=== PATIENT | female | born 1975 | race Caucasian/White ===

== ENCOUNTER 2016-08-20 12:45 | Outpatient (CLI) | payer BC | END 2016-08-20 12:46 | disposition home or self-care (01) | DX: N63 Unspecified lump in breast (principal); N64.4 Mastodynia ==

== ENCOUNTER 2018-04-25 00:11 | Emergency (ER) | payer BC ==
[2018-04-25] MEDS ORDERED: IOPAMIDOL-300 100 ML VIAL IVP ONE ×2 (00:12→02:18)
[2018-04-25 00:48] LABS: BASOPHILS # (AUTO) 0.1 10^3/uL (0.0-0.1); BASOPHILS % (AUTO) 0.7 %; EOSINOPHILS # (AUTO) 0.2 10^3/uL (0.0-0.7); EOSINOPHILS % (AUTO) 2.5 %; HGB - HEMOGLOBIN 16.1 g/dL (12.0-16.0); LYMPHOCYTES # (AUTO) 3.2 10^3/uL (1.5-3.5); LYMPHOCYTES % (AUTO) 34.9 %; MEAN CORPUSCULAR HEMOGLOBIN 34.8 pg (27.0-31.0); MEAN CORPUSCULAR HGB CONC 35.1 g/dL (32.0-36.0); MEAN CORPUSCULAR VOLUME 99.1 fL (81.0-99.0); MONOCYTES # (AUTO) 0.6 10^3/uL (0.0-1.0); MONOCYTES % (AUTO) 6.4 %; NEUTROPHILS # (AUTO) 5.2 10^3/uL (1.5-6.6); NEUTROPHILS % (AUTO) 55.5 %; PLT - PLATELET COUNT 258 10^3/uL (130-450); RED BLOOD COUNT 4.62 10^6/uL (4.20-5.40); RED CELL DISTRIBUTION WIDTH 13.4 % (12.0-15.0); WHITE BLOOD COUNT 9.3 x10^3/uL (4.8-10.8)
[2018-04-25 00:53] LABS: ALBUMIN 4.4 g/dL (3.2-5.5); ALBUMIN/GLOBULIN RATIO 1.3 (1.0-2.2); BILIRUBIN,TOTAL 0.5 mg/dL (0.2-1.0); CREATININE 0.6 mg/dL (0.4-1.0); TOTAL PROTEIN 7.9 g/dL (6.7-8.2)
--- NOTE | 2018-04-25 00:53 | XRAY Report ---
Reason: CP Procedure Date: 04/25/2018 Accession Number: [id number] / [id number] Procedure: XR - Chest 2 View X-Ray CPT Code: 96105 FULL RESULT: EXAM: CHEST RADIOGRAPHY EXAM DATE: 04/25/2018 12:45 AM. CLINICAL HISTORY: Chest pain COMPARISON: None. TECHNIQUE: 2 views. FINDINGS: Lungs/Pleura: No focal opacities evident. No pleural effusion. No pneumothorax. Normal volumes. Mediastinum: Heart and mediastinal contours are unremarkable. Other: None. IMPRESSION: Normal 2-view chest radiography. RADIA
[2018-04-25] MEDS ORDERED: IOPAMIDOL-300 100 ML VIAL ONE (02:28)
--- NOTE | 2018-04-25 02:47 | CT Report ---
Reason: cp, soa with elevated d-dimer Procedure Date: 04/25/2018 Accession Number: [id number] / [id number] Procedure: CT - Chest Angio (PE) CPT Code: FULL RESULT: EXAM: CT ANGIOGRAM CHEST EXAM DATE: 04/25/2018 02:30 AM. CLINICAL HISTORY: Chest pain, shortness of air with elevated D-dimer. COMPARISON: CHEST 2 VIEW 04/25/2018 12:31 AM. TECHNIQUE: Routine helical imaging was performed through the chest in the pulmonary arterial phase. IV Contrast: Yes. Reconstructions: Coronal 3-D MIP reconstructions.Sagittal and coronal. In accordance with CT protocol optimization, one or more of the following dose reduction techniques were utilized for this exam: automated exposure control, adjustment of mA and/or KV based on patient size, or use of iterative reconstructive technique. FINDINGS: Pulmonary Arteries: Technically adequate for evaluation through the segmental arteries. No evidence for acute or chronic pulmonary emboli. Lungs/Pleura: Scattered bilateral upper lobe and right middle lobe peripheral nodular opacities. No large consolidative pneumonia or effusion. Mediastinum: No acute aortic syndrome. No cardiac enlargement. No adenopathy. Upper Abdomen: Unremarkable. Other: None. IMPRESSION: 1. No pulmonary emboli. 2. Scattered small peripheral nodular opacities in the bilateral upper lobes and right middle lobe. Appearance favors mild inflammatory process such as bronchopneumonia. RADIA
[2018-04-25] MEDS ORDERED: DOXYCYCLINE 100 MG TABLET PO STA (03:21)
--- NOTE | 2018-04-25 03:35 | ED Physician Documentation ---
PD HPI CHEST PAIN - Stated complaint Stated Complaint: CP - Chief complaint Chief Complaint: Cardiac - History obtained from History obtained from: Patient - History of Present Illness Timing - onset: Today Timing - onset during: Light activity Timing - duration: Other (14:00) Timing - details: Gradual onset Severity Comments: moderate Quality: Sharp, Stabbing. No: Pressure, Tightness, Aching, Tearing, Dull, Throbbing Location: Substernal Radiation: No: Jaw, Neck, Back, Abdominal, Left upper extremity, Right upper extremity Improved by: Nothing Worsened by: Inspiration Associated symptoms: Shortness of air. No: Diaphoresis, Nausea, Vomiting, Feeling faint / dizzy, General Weakness Similar symptoms before: No diagnosis Recently seen: Not recently seen Review of Systems Constitutional: denies: Fever, Fatigue Eyes: denies: Discharge Ears: denies: Ear pain Nose: denies: Congestion Throat: denies: Sore throat Cardiac: reports: Chest pain / pressure Respiratory: reports: Dyspnea, Cough GI: denies: Abdominal Pain : denies: Dysuria Skin: denies: Rash Musculoskeletal: denies: Neck pain Neurologic: denies: Generalized weakness Psychiatric: denies: Hallucinations Immunocompromised: denies: Chemotherapy PD PAST MEDICAL HISTORY - Past Medical History Past Medical History: No - Past Surgical History 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 HEENT: Tonsil/Adenoidectomy - Present Medications Home Medications: Ambulatory Orders Medication Instructions Recorded Confirmed Doxycycline Hyclate 100 mg PO BID #20 capsule 04/25/18 - Allergies Allergies/Adverse Reactions: Allergies Allergy/AdvReac Type Severity Reaction Status Date / Time narcotics AdvReac Emesis Uncoded 04/25/18 00:30 - Social History Does the pt smoke?: Yes Smoking Status: Current every day smoker Does the pt drink ETOH?: Yes ETOH Use: Liquor Does the pt have substance abuse?: No - Immunizations Immunizations are current?: Yes - POLST Patient has POLST: No PD ED PE NORMAL - General General: Alert and oriented X 3, No acute distress - HEENT HEENT: Atraumatic, PERRL, EOMI, Ears normal - Neck Neck: Supple, no meningeal sign - Cardiac Cardiac: RRR, Strong equal pulses - Respiratory Respiratory: No respiratory distress - Derm Derm: Normal color - Extremities Extremities: No deformity, No calf tenderness / cord - Neuro Neuro: Alert and oriented X 3, Normal speech - Psych Psych: Normal mood Results - Vitals Vitals: Vital Signs - 24 hr 04/25/18 04/25/18 04/25/18 00:15 01:05 01:24 Temperature 36.0 C L Heart Rate 96 82 79 Respiratory 18 20 18 Rate Blood Pressure 143/98 H 115/82 H 115/82 H O2 Saturation 98 96 98 04/25/18 04/25/18 02:05 02:40 Temperature Heart Rate 79 83 Respiratory 17 18 Rate Blood Pressure 120/77 141/98 H O2 Saturation 100 99 Oxygen O2 Source Room air - EKG (time done) No standard instances Rate: Rate (enter#) (90) Rhythm: NSR Elizabeth: Normal Intervals: Normal [place] QRS: Normal Ischemia: Normal ST segments - Labs Labs: Laboratory Tests 04/25/18 04/25/18 04/25/18 00:30 00:30 00:30 WBC 9.3 RBC 4.62 Hgb 16.1 H Hct 45.8 MCV 99.1 H MCH 34.8 H MCHC 35.1 RDW 13.4 Plt Count 258 MPV 9.0 Neut # (Auto) 5.2 Lymph # (Auto) 3.2 [place] # (Auto) 0.6 Eos # (Auto) 0.2 Baso # (Auto) 0.1 Absolute Nucleated RBC 0.00 Nucleated RBC % 0.0 D-Dimer Sodium 141 Potassium 3.7 Chloride 108 Carbon Dioxide 22 Anion Gap 11.0 BUN 8 Creatinine 0.6 Estimated GFR (MDRD) 109 Glucose 99 Calcium 9.0 Total Bilirubin 0.5 AST 28 ALT 37 Alkaline Phosphatase 71 Troponin I < 0.04 Total Protein 7.9 Albumin 4.4 Globulin 3.5 Albumin/Globulin Ratio 1.3 Lipase 39 04/25/18 04/25/18 00:30 02:40 WBC RBC Hgb Hct MCV MCH MCHC RDW Plt Count MPV Neut # (Auto) Lymph # (Auto) [place]wood # (Auto) Eos # (Auto) Baso # (Auto) Absolute Nucleated RBC Nucleated RBC % D-Dimer 323.7 H Sodium Potassium Chloride Carbon Dioxide Anion Gap BUN Creatinine Estimated GFR (MDRD) Glucose Calcium Total Bilirubin AST ALT Alkaline Phosphatase Troponin I < 0.04 Total Protein Albumin Globulin Albumin/Globulin Ratio Lipase - Rads (name of study) CTA Chest Radiology: Final report received (1. No pulmonary emboli. 2. Scattered small peripheral nodular opacities in the bilateral upper lobes and right middle lobe. Appearance favors mild inflammatory process ) CXR Radiology: Final report received (IMPRESSION: Normal 2-view chest radiography. ) PD MEDICAL DECISION MAKING - ED course ED course: On reevaluation the patient is resting comfortably and appears to be in no significant distress. The etiology of the patient's symptoms most likely are secondary to the pneumonia seen on CT scan. The patient's workup shows no evidence of DVT, acute coronary syndrome, pneumothorax or dissection. The patient is also in the low risk category per the heart score and appears appropriate for discharge and ongoing outpatient management. The patient will be treated with an antibiotic for the pneumonia. I recommended close follow-up with primary care, the patient may also still require an outpatient stress test to rule out any cardiac etiology. The patient understands and agrees to the plan. I discussed warning signs and recommended returning to the emergency department immediately for any worsening or any concerns. Departure - Departure Disposition: 01 Home, Self Care Clinical Impression: Chest pain Qualifiers: Chest pain type: unspecified Qualified Code(s): R07.9 - Chest pain, unspecified Pneumonia Qualifiers: Pneumonia type: due to unspecified organism Laterality: unspecified laterality Lung location: unspecified part of lung Qualified Code(s): J18.9 - Pneumonia, unspecified organism Condition: Good Instructions: ED Pneumonia Adult, ED Chest Pain [facility] Prescriptions: Doxycycline Hyclate 100 mg PO BID #20 capsule Comments: Please follow-up with primary care for ongoing workup and management. Please ask your primary care about arranging an outpatient stress test. Please return to the emergency department immediately for worsening symptoms or any concerns
[2018-04-25 03:55] VITALS: BP 120/77
== END 2018-04-25 03:44 | disposition home or self-care (01) ==
LOC: ED 00:11
DX: R07.9 Chest pain, unspecified (principal); J18.9 Pneumonia, unspecified organism; F17.200 Nicotine dependence, unspecified, uncomplicated
CPT/HCPCS: 36415; 71046; 71275; 80053; 83690; 84484; 85025; 85379; 93005; 99284; A9270; Q9967

== ENCOUNTER 2019-08-04 23:33 | Outpatient (CLI) | payer BC | END 2019-08-04 23:34 | disposition critical access hospital (66) | LOC: EMS 23:33 | PROVIDERS: ATTEND Surgery | DX: R46.4 Slowness and poor responsiveness (principal) | CPT/HCPCS: A0425; A0427 ==

== ENCOUNTER 2019-08-04 23:55 | Emergency (ER) | payer BC ==
[2019-08-05] MEDS ORDERED: FOLIC ACID INJ 1 MG, THIAMINE INJ 100 MG, MAGNESIUM SULFATE 2 GM, MULTIVITAMIN 10 ML in... IV STA ×5 (00:04)
--- NOTE | 2019-08-05 00:08 | ED Physician Documentation ---
History of Present Illness - Stated complaint Stated Complaint: ETOH/ SI - History obtained from History obtained from: EMS (History is extremely limited. Patient arrived intoxicated. EMS took the history from patient's boyfriend. According to the boyfriend, patient took unknown quantity of Ativan. On the empty bottle, Ativan was prescribing in April 2019 #24. Patient is a known alcoholic and has been drinking Heavily today. She has history of depression and questionable previous suicidal intent 8+ years ago. According to the chef de froid her boyfriend indicated that for the last 8 years they have been together, she has not attempted suicide. Patient in the emergency room has spontaneous respiration, snore quite loudly, and has no distress. in route, chef de froid has given her 2 mg of Narcan without any changes.) - History of Present Illness Timing: Unknown Review of Systems Unable to obtain: Unresponsive Ten Systems: 10 systems reviewed and negative Constitutional: reports: Reviewed and negative Eyes: reports: Reviewed and negative Ears: reports: Reviewed and negative Nose: reports: Reviewed and negative Throat: reports: Reviewed and negative Cardiac: reports: Reviewed and negative Respiratory: reports: Reviewed and negative GI: reports: Reviewed and negative : reports: Reviewed and negative Skin: reports: Reviewed and negative Musculoskeletal: reports: Reviewed and negative Neurologic: reports: Generalized weakness Psychiatric: reports: Depressed, Suicidal Endocrine: reports: Reviewed and negative Immunocompromised: reports: Reviewed and negative PD PAST MEDICAL HISTORY - Past Medical History Past Medical History: Yes Psych: Depression, Other (Alcohol abuse) - Past Surgical History 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 HEENT: Tonsil/Adenoidectomy - Present Medications Home Medications: Ambulatory Orders Medication Instructions Recorded Confirmed Atorvastatin [Lipitor] 1 tab DAILY 08/05/19 08/05/19 Lorazepam [Ativan] 1 tab Q8HR PRN 08/05/19 08/05/19 Naltrexone HCl 50 mg PO 08/05/19 - Allergies Allergies/Adverse Reactions: Allergies Allergy/AdvReac Type Severity Reaction Status Date / Time narcotics AdvReac Emesis Uncoded 04/25/18 00:30 - Social History Does the pt smoke?: Yes Smoking Status: Current every day smoker Does the pt drink ETOH?: Yes Does the pt have substance abuse?: No - Immunizations Immunizations are current?: Yes - POLST Patient has POLST: No PD ED PE NORMAL - Vitals Vital signs reviewed: Yes - General General: No acute distress, Other (Nonresponsive, spontaneous respiration, obtunded,) - HEENT HEENT: PERRL, Other. No: Moist mucous membranes (dry oral mucosa) - Neck Neck: Supple, no meningeal sign - Cardiac Cardiac: RRR, No murmur - Respiratory Respiratory: Clear bilaterally - Abdomen Abdomen: Normal bowel sounds, Soft, Non tender, Non distended - Derm Derm: Warm and dry - Extremities Extremities: No deformity - Neuro Neuro: Alert and oriented X 3 - Psych Psych: Normal mood, Normal affect Results - Vitals Vitals: Vital Signs - 24 hr 08/05/19 08/05/19 08/05/19 01:30 02:00 02:30 Heart Rate 85 79 77 Respiratory 18 17 19 Rate Blood Pressure 98/61 126/75 95/75 O2 Saturation 99 100 100 08/05/19 08/05/19 08/05/19 03:00 03:30 04:00 Heart Rate 53 L 81 83 Respiratory 20 18 16 Rate Blood Pressure 134/55 H 103/62 114/74 O2 Saturation 94 99 100 08/05/19 08/05/19 08/05/19 04:30 05:00 05:30 Heart Rate 83 86 100 Respiratory 14 16 12 Rate Blood Pressure 103/74 94/52 L 108/71 O2 Saturation 100 95 97 08/05/19 08/05/19 08/05/19 06:46 07:33 12:50 Heart Rate 104 H 81 88 Respiratory 21 24 18 Rate Blood Pressure 101/53 L 110/77 148/94 H O2 Saturation 96 96 Oxygen O2 Source Room air Oxygen Flow Rate 2 - Labs Labs: Laboratory Tests 08/05/19 08/05/19 08/05/19 00:10 00:10 00:10 WBC 7.3 RBC 4.38 Hgb 14.6 Hct 46.5 MCV 106.2 H MCH 33.3 H MCHC 31.4 L RDW 12.6 Plt Count 257 MPV 10.3 Neut # (Auto) 3.5 Lymph # (Auto) 3.0 [place] # (Auto) 0.6 Eos # (Auto) 0.2 Baso # (Auto) 0.0 Absolute Nucleated RBC 0.00 Nucleated RBC % 0.0 Sodium 143 Potassium 3.7 Chloride 106 Carbon Dioxide 25 Anion Gap 12.0 BUN 9 Creatinine 0.6 Estimated GFR (MDRD) 108 Glucose 111 H Calcium 8.5 Total Bilirubin < 0.2 L AST 21 ALT 26 Alkaline Phosphatase 60 Total Protein 6.7 Albumin 3.6 Globulin 3.1 Albumin/Globulin Ratio 1.2 Lipase 51 TSH 2.04 Urine Color Urine Clarity Urine pH Ur Specific Equality Urine Protein Urine Glucose (UA) Urine Ketones Urine Occult Blood Urine Nitrite Urine Bilirubin Urine Urobilinogen Ur Leukocyte Esterase Ur Microscopic Review Urine Culture Comments Urine HCG, Qual Salicylates < 6.0 Urine Opiates Screen Ur Oxycodone Screen Urine Methadone Screen Ur Propoxyphene Screen Acetaminophen < 10 L Ur Barbiturates Screen Ur Tricyclics Screen Ur Phencyclidine Scrn Ur Amphetamine Screen U Methamphetamines Scrn U Benzodiazepines Scrn Urine Cocaine Screen U Cannabinoids Screen Ethyl Alcohol 215.7 08/05/19 08/05/19 08/05/19 00:15 00:15 07:20 WBC RBC Hgb Hct MCV MCH MCHC RDW Plt Count MPV Neut # (Auto) Lymph # (Auto) [place] # (Auto) Eos # (Auto) Baso # (Auto) Absolute Nucleated RBC Nucleated RBC % Sodium Potassium Chloride Carbon Dioxide Anion Gap BUN Creatinine Estimated GFR (MDRD) Glucose Calcium Total Bilirubin AST ALT Alkaline Phosphatase Total Protein Albumin Globulin Albumin/Globulin Ratio Lipase TSH Urine Color YELLOW Urine Clarity CLEAR Urine pH 5.5 Ur Specific Equality <=1.005 Urine Protein NEGATIVE Urine Glucose (UA) NEGATIVE Urine Ketones NEGATIVE Urine Occult Blood TRACE-INTA Urine Nitrite NEGATIVE Urine Bilirubin NEGATIVE Urine Urobilinogen 0.2 (NORMAL) Ur Leukocyte Esterase NEGATIVE Ur Microscopic Review NOT INDICATED Urine Culture Comments NOT INDICATED Urine HCG, Qual NEGATIVE Salicylates Urine Opiates Screen POSITIVE H Ur Oxycodone Screen NEGATIVE Urine Methadone Screen NEGATIVE Ur Propoxyphene Screen NEGATIVE Acetaminophen Ur Barbiturates Screen NEGATIVE Ur Tricyclics Screen NEGATIVE Ur Phencyclidine Scrn NEGATIVE Ur Amphetamine Screen NEGATIVE U Methamphetamines Scrn NEGATIVE U Benzodiazepines Scrn POSITIVE H Urine Cocaine Screen NEGATIVE U Cannabinoids Screen NEGATIVE Ethyl Alcohol 22.9 PD MEDICAL DECISION MAKING - ED course ED course: This lady presented to the emergency room by chef de froid with alcohol intoxication and possible suicidal intent. Her alcohol level is elevated. CBC and chemistry are essentially negative. UDS demonstrated positive benzodiazepine and opiate. Throughout the evening, patient has been sleeping. Patient needs to be reassessed when she is more alert. She will also benefit from a social service consultation in the morning. Care is transferred at 7:00 in the morning. Departure - Departure Disposition: 01 Home, Self Care Clinical Impression: Suicidal intent Alcohol intoxication Qualifiers: Complication of substance-induced condition: uncomplicated Qualified Code(s): F10.920 - Alcohol use, unspecified with intoxication, uncomplicated Condition: Stable Instructions: ED Alcohol Intoxication Comments: Follow-up with the detox and counseling program as planned. Avoid alcohol. Stay well-hydrated. Discharge Date/Time: 08/05/19 13:12
[2019-08-05] MEDS ORDERED: THIAMINE 100 MG/1 ML 2 ML MDV ONE (00:23)
[2019-08-05 00:24] LABS: BILIRUBIN,URINE NEGATIVE (NEGATIVE); GLUCOSE, URINE (UA) NEGATIVE (NEGATIVE); KETONES,URINE (UA) NEGATIVE (NEGATIVE); LEUKOCYTE ESTERASE, URINE NEGATIVE (NEGATIVE); NITRITE,URINE NEGATIVE (NEGATIVE); OCCULT BLOOD,URINE TRACE-INTA (NEGATIVE); PH,URINE 5.5 PH (5.0-7.5); PROTEIN,URINE NEGATIVE (NEGATIVE); UROBILINOGEN,URINE 0.2 (NORMAL) E.U./dL (NORMAL)
[2019-08-05 00:25] LABS: CLARITY,URINE CLEAR (CLEAR); HCG UR QUAL NEGATIVE; MUDS CUTOFF CONCENTRATIONS CUTOFF CONC BELOW:
[2019-08-05 00:26] LABS: BASOPHILS % (AUTO) 0.4 %; EOSINOPHILS # (AUTO) 0.2 10^3/uL (0.0-0.7); EOSINOPHILS % (AUTO) 2.5 %; HGB - HEMOGLOBIN 14.6 g/dL (12.0-16.0); LYMPHOCYTES % (AUTO) 40.6 %; MEAN CORPUSCULAR HEMOGLOBIN 33.3 pg (27.0-31.0); MEAN CORPUSCULAR HGB CONC 31.4 g/dL (32.0-36.0); MEAN CORPUSCULAR VOLUME 106.2 fL (81.0-99.0); MEAN PLATELET VOLUME 10.3 fL (7.9-10.8); MONOCYTES # (AUTO) 0.6 10^3/uL (0.0-1.0); MONOCYTES % (AUTO) 8.5 %; NEUTROPHILS # (AUTO) 3.5 10^3/uL (1.5-6.6); NEUTROPHILS % (AUTO) 47.7 %; PLT - PLATELET COUNT 257 10^3/uL (130-450); RED BLOOD COUNT 4.38 10^6/uL (4.20-5.40); RED CELL DISTRIBUTION WIDTH 12.6 % (12.0-15.0); WHITE BLOOD COUNT 7.3 x10^3/uL (4.8-10.8)
[2019-08-05 00:35] LABS: AMPHETAMINE SCREEN,URINE NEGATIVE (NEGATIVE); BENZODIAZEPINES SCREEN, URINE POSITIVE (NEGATIVE); COCAINE SCREEN URINE NEGATIVE (NEGATIVE); METHADONE SCREEN, URINE NEGATIVE (NEGATIVE); METHAMPHETAMINES SCREEN, URINE NEGATIVE (NEGATIVE); OPIATE SCREEN, URINE POSITIVE (NEGATIVE); OXYCODONE SCREEN, URINE NEGATIVE (NEGATIVE); PROPOXYPHENE SCREEN, URINE NEGATIVE (NEGATIVE); TRICYCLIC ANTIDEPRESSANT,URINE NEGATIVE (NEGATIVE)
[2019-08-05 00:46] LABS: ACETAMINOPHEN < 10 ug/mL (10-30); ALBUMIN 3.6 g/dL (3.2-5.5); ALBUMIN/GLOBULIN RATIO 1.2 (1.0-2.2); ALKALINE PHOSPHATASE 60 IU/L (42-121); ALT ALANINE AMINOTRANSFERASE 26 IU/L (10-60); AST ASPARTATE AMINOTRANSFERASE 21 IU/L (10-42); BILIRUBIN,TOTAL < 0.2 mg/dL (0.2-1.0); BUN - BLOOD UREA NITROGEN 9 mg/dL (6-20); CALCIUM 8.5 mg/dL (8.5-10.3); CARBON DIOXIDE - CO2 25 mmol/L (21-32); CHLORIDE 106 mmol/L (101-111); CREATININE 0.6 mg/dL (0.4-1.0); GFR - MDRD 108 (>89); GLUCOSE 111 mg/dL (70-100); LIPASE 51 U/L (22-51); SALICYLATE < 6.0 mg/dL; SODIUM 143 mmol/L (135-145); TOTAL PROTEIN 6.7 g/dL (6.7-8.2)
[2019-08-05] MEDS ORDERED: SODIUM CHLORIDE 0.9% 1,000 ML IV ONE (02:05)
[2019-08-05] MEDS ORDERED: NICOTINE 14 MG PATCH TOP STA (09:36)
--- NOTE | 2019-08-05 12:55 | ED Physician Documentation ---
ED Addendum - Addendum Addendum: 08/05/19 12:53 The patient was seen by social work and who felt an assessment by [facility] was warranted. Eulalia from the [facility] came and talked with the patient felt that she was not in need of detainment. She did not seem suicidal at this time but was more influenced by the alcohol at the time overnight. She denies any suicidality to me as well. She was made an appointment with a [facility] for Saturday for a alcohol and drug treatment intake interview. She will avoid alcohol. She will stay well-hydrated. She does have the support of friends and family with her will be watching with her and helping her. Alcohol intoxication #2 suicidal ideation and intent #3 depression and anxiety Disposition the patient discharged home in stable condition.
[2019-08-05 13:10] VITALS: BP 148/94
== END 2019-08-05 13:12 | disposition home or self-care (01) ==
LOC: EDUNIT# → ED 23:55
DX: F10.229 Alcohol dependence with intoxication, unspecified (principal); F32.9 Major depressive disorder, single episode, unspecified; F41.9 Anxiety disorder, unspecified; R45.851 Suicidal ideations; F17.200 Nicotine dependence, unspecified, uncomplicated
CPT/HCPCS: 36415; 80320; 80329; 81003; 81025; 83690; 96365; 96366; 99284; 99285; A9270; J3411; 80053; 80306; 80307; 81001; 84443; 85025; 87086

== ENCOUNTER 2020-02-23 14:53 | Emergency (ER) | payer BC ==
--- NOTE | 2020-02-23 15:00 | ED Physician Documentation ---
PD HPI CHEST PAIN - Stated complaint Stated Complaint: BACK/CHEST PX - History obtained from History obtained from: Patient - History of Present Illness Timing - onset: Today (She was awoken about 4 AM this morning with substernal chest pain rating to her back which has persisted through the whole morning into the afternoon. Worse with breathing. She had some coffee but no food and did not notice any worsening or improvement. She is not coughing. No dizzy or lighthead) Timing - onset during: Sleep Timing - duration: Hours (11) Timing - details: Abrupt onset, Still present Quality: Tightness, Aching, Pain Location: Substernal Radiation: Neck, Back. No: Jaw, Abdominal Associated symptoms: Feeling faint / dizzy, Palpitations. No: Shortness of air, Nausea, General Weakness Similar symptoms before: Has not had sx before Recently seen: Not recently seen (She did stop at the walk-in clinic but was diverted to the ER for further evaluation.) Review of Systems Constitutional: denies: Fever, Chills Nose: denies: Rhinorrhea / runny nose, Congestion Throat: denies: Sore throat Cardiac: reports: Chest pain / pressure (just this morning; no prior similar.), Palpitations. denies: Pedal edema, Calf pain Respiratory: denies: Dyspnea, Cough, Wheezing GI: denies: Abdominal Pain, Nausea, Vomiting, Diarrhea Musculoskeletal: denies: Extremity swelling Neurologic: reports: Generalized weakness. 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 HEENT: Tonsil/Adenoidectomy - Present Medications Home Medications: Ambulatory Orders Medication Instructions Recorded Confirmed Atorvastatin [Lipitor] 1 tab DAILY 08/05/19 08/05/19 Lorazepam [Ativan] 1 tab Q8HR PRN 08/05/19 08/05/19 Naltrexone HCl 50 mg PO 08/05/19 - Allergies Allergies/Adverse Reactions: Allergies Allergy/AdvReac Type Severity Reaction Status Date / Time Opioids - Morphine Analogues AdvReac Intermediate Emesis Verified 02/23/20 16:40 - Social History Does the pt smoke?: Yes Smoking Status: Current every day smoker Does the pt drink ETOH?: Yes Does the pt have substance abuse?: No - Immunizations Immunizations are current?: Yes - POLST Patient has POLST: No PD ED PE NORMAL - Vitals Vital signs reviewed: Yes - General General: Alert and oriented X 3, No acute distress, Well developed/nourished - HEENT HEENT: Pharynx benign - Neck Neck: Supple, no meningeal sign, No adenopathy - Cardiac Cardiac: RRR, No murmur - Respiratory Respiratory: Clear bilaterally, Other (no chestwall tenderness) - Abdomen Abdomen: Soft, Non tender - Derm Derm: Normal color, Warm and dry - Extremities Extremities: No tenderness to palpate, Normal ROM s pain, No edema, No calf tenderness / cord - Neuro Neuro: Alert and oriented X 3, No motor deficit, Normal speech Results - Vitals Vitals: Vital Signs - 24 hr 02/23/20 02/23/20 02/23/20 15:05 16:53 17:12 Temperature 36.8 C Heart Rate 98 85 75 Respiratory 20 17 11 L Rate Blood Pressure 159/97 H 151/101 H 156/105 H O2 Saturation 99 100 99 Oxygen O2 Source Room air - EKG (time done) 14:59 Rate: Rate (enter#) (84) Rhythm: NSR [place]: Normal Intervals: Normal [place] QRS: Normal Ischemia: Normal ST segments. No: ST elevation c/w ischemia, ST depression - Labs Labs: Laboratory Tests 02/23/20 02/23/20 02/23/20 15:28 15:28 15:28 WBC 8.4 RBC 4.90 Hgb 17.1 H Hct 50.0 H MCV 102.0 H MCH 34.9 H MCHC 34.2 RDW 12.9 Plt Count 230 MPV 10.3 Neut # (Auto) 5.3 Lymph # (Auto) 2.1 Barton # (Auto) 0.7 Eos # (Auto) 0.1 Baso # (Auto) 0.0 Absolute Nucleated RBC 0.00 Nucleated RBC % 0.0 Sodium 139 Potassium 3.6 Chloride 104 Carbon Dioxide 25 Anion Gap 10.0 BUN 8 Creatinine 0.6 Estimated GFR (MDRD) 108 Glucose 93 Calcium 9.5 Total Bilirubin 0.7 AST 23 ALT 28 Alkaline Phosphatase 81 Troponin I High Sens 241.5 H* Total Protein 7.6 Albumin 4.4 Globulin 3.2 Albumin/Globulin Ratio 1.4 Lipase 36 - Rads (name of study) chest xray Radiology: Prelim report reviewed, See rad report (no acute process) PD MEDICAL DECISION MAKING - ED course Complexity details: reviewed results (She has a quite elevated troponin of 241 which would be highly suggestive of acute myocardial injury. As such I do not feel that this is a rule out process but needs cardiology evaluation.), considered differential (Awoke with chest pain this morning which has been persistent. EKG is normal. We will get chest x-ray and blood tests. She has a low pretest risk assessment for PE. No recent cough to suggest pneumonia. No exertional symptoms preceding this), d/w patient Departure - Departure Disposition: 02 Transfer Acute Care Hosp Clinical Impression: Elevated troponin, Non-STEMI (non-ST elevated myocardial infarction) Chest pain Qualifiers: Chest pain type: precordial pain Qualified Code(s): R07.2 - Precordial pain Condition: Stable Record reviewed to determine appropriate education?: Yes
[2020-02-23] MEDS: MAG HYDROX/AL HYDROX/SIMETH 30 ML UDC PO STA (15:33)
[2020-02-23] MEDS: LIDOCAINE VISCOUS 2% 15 ML UDC MM STA (15:33)
[2020-02-23 15:36] LABS: BASOPHILS % (AUTO) 0.5 %; EOSINOPHILS # (AUTO) 0.1 10^3/uL (0.0-0.7); EOSINOPHILS % (AUTO) 1.7 %; HGB - HEMOGLOBIN 17.1 g/dL (12.0-16.0); LYMPHOCYTES # (AUTO) 2.1 10^3/uL (1.5-3.5); LYMPHOCYTES % (AUTO) 25.5 %; MEAN CORPUSCULAR HEMOGLOBIN 34.9 pg (27.0-31.0); MEAN CORPUSCULAR HGB CONC 34.2 g/dL (32.0-36.0); MEAN PLATELET VOLUME 10.3 fL (7.9-10.8); MONOCYTES # (AUTO) 0.7 10^3/uL (0.0-1.0); MONOCYTES % (AUTO) 8.9 %; NEUTROPHILS # (AUTO) 5.3 10^3/uL (1.5-6.6); PLT - PLATELET COUNT 230 10^3/uL (130-450); RED CELL DISTRIBUTION WIDTH 12.9 % (12.0-15.0); WHITE BLOOD COUNT 8.4 x10^3/uL (4.8-10.8)
--- NOTE | 2020-02-23 15:36 | XRAY Report ---
PROCEDURE: Chest 1 View X-Ray INDICATIONS: Chest pain TECHNIQUE: One view of the chest was acquired. COMPARISON: 04/25/2018 FINDINGS: Surgical changes and devices: None. Lungs and pleura: No pleural effusions or pneumothorax. Lungs are clear. Mediastinum: Mediastinal contours appear normal. Heart size is normal. Bones and chest wall: No suspicious bony lesions. Overlying soft tissues appear unremarkable. IMPRESSION: No acute cardiac pulmonary process demonstrated radiographically. Reviewed by: Kevin Burciaga MD on 02/23/2020 3:35 PM PDT Approved by: Kevin Burciaga MD on 02/23/2020 3:35 PM PDT Station ID: [id number]
[2020-02-23 15:47] LABS: ALBUMIN 4.4 g/dL (3.2-5.5); ALBUMIN/GLOBULIN RATIO 1.4 (1.0-2.2); BILIRUBIN,TOTAL 0.7 mg/dL (0.2-1.0); CALCIUM 9.5 mg/dL (8.5-10.3); CREATININE 0.6 mg/dL (0.4-1.0); TOTAL PROTEIN 7.6 g/dL (6.7-8.2)
[2020-02-23] MEDS: ASPIRIN CHEW 81 MG TABLET PO STA (16:06)
[2020-02-23] MEDS: METOPROLOL 5 MG/5 ML VIAL IVP STA (16:42)
[2020-02-23] MEDS: ATORVASTATIN 10 MG TABLET PO STA (16:42)
[2020-02-23] MEDS: CLOPIDOGREL 300 MG TABLET PO STA (16:42)
[2020-02-23] MEDS: MORPHINE 2 MG/ML CARPUJECT IVP STA (16:43)
[2020-02-23] MEDS: HEPARIN 25,000 UNITS/500 ML NS 25,000 UNIT/500 ML BAG IV STA (16:50)
[2020-02-23] MEDS ORDERED: HEPARIN 25,000 UNITS/500 ML PREMIX IV SCH (17:00)
[2020-02-23 19:00] VITALS: BP 148/88
== END 2020-02-23 19:35 | disposition short-term general hospital (02) ==
LOC: ED 14:53
DX: I21.4 Non-ST elevation (NSTEMI) myocardial infarction (principal); F17.200 Nicotine dependence, unspecified, uncomplicated
CPT/HCPCS: 36415; 71045; 80053; 83690; 83880; 84484; 85025; 93005; 96374; 96375; 99284; 99285; A9270

== ENCOUNTER 2020-02-23 19:31 | Outpatient (CLI) | payer BC | END 2020-02-23 19:32 | disposition short-term general hospital (02) | LOC: EMS 19:31 | PROVIDERS: ATTEND Surgery | DX: R07.89 Other chest pain (principal); M54.9 Dorsalgia, unspecified | CPT/HCPCS: A0425; A0426 ==

== ENCOUNTER 2020-12-26 12:32 | Outpatient (CLI) | payer BC ==
--- NOTE | 2020-12-26 12:52 | XRAY Report ---
PROCEDURE: Shoulder 3 View RT INDICATIONS: CONTUSION OF RIGHT SHOULDER TECHNIQUE: 3 views of the shoulder were acquired. COMPARISON: None. FINDINGS: Bones: No fractures or dislocations. No suspicious bony lesions. Visualized ribs appear intact. S light high riding appearance of the humeral head. Soft tissues: No suspicious soft tissue calcifications. IMPRESSION: 1. . No visualized acute fracture or dislocation. However, occult injury cannot be excluded. Recomme nd short interval imaging follow-up in 7-10 days as clinically indicated for additional evaluation. 2. High riding humeral head which can be seen with rotator cuff pathology. Reviewed by: Yulia Sahu MD on 12/26/2020 12:50 PM PDT Approved by: Yulia Sahu MD on 12/26/2020 12:50 PM PDT Station ID: [id number]
== END 2020-12-26 23:59 | disposition home or self-care (01) ==
LOC: DI.S 12:32
PROVIDERS: ATTEND Physician Assistant Medical
DX: R93.6 Abnormal findings on diagnostic imaging of limbs (principal)

== ENCOUNTER 2020-12-27 15:37 | Outpatient (CLI) | payer BC ==
[2020-12-27 16:10] LABS: BASOPHILS % (AUTO) 0.2 %; EOSINOPHILS # (AUTO) 0.2 10^3/uL (0.0-0.7); EOSINOPHILS % (AUTO) 1.7 %; HGB - HEMOGLOBIN 13.7 g/dL (12.0-16.0); LYMPHOCYTES # (AUTO) 2.6 10^3/uL (1.5-3.5); LYMPHOCYTES % (AUTO) 26.9 %; MEAN CORPUSCULAR HEMOGLOBIN 33.7 pg (27.0-31.0); MEAN CORPUSCULAR HGB CONC 33.4 g/dL (32.0-36.0); MEAN PLATELET VOLUME 10.2 fL (7.9-10.8); MONOCYTES # (AUTO) 0.8 10^3/uL (0.0-1.0); MONOCYTES % (AUTO) 7.9 %; PLT - PLATELET COUNT 278 10^3/uL (130-450); RED BLOOD COUNT 4.06 10^6/uL (4.20-5.40); RED CELL DISTRIBUTION WIDTH 12.2 % (12.0-15.0); WHITE BLOOD COUNT 9.5 x10^3/uL (4.8-10.8)
[2020-12-27 16:28] LABS: ALBUMIN 4.1 g/dL (3.2-5.5); ALKALINE PHOSPHATASE 160 IU/L (42-121); ALT ALANINE AMINOTRANSFERASE 47 IU/L (10-60); AST ASPARTATE AMINOTRANSFERASE 35 IU/L (10-42); BILIRUBIN,DIRECT 0.1 mg/dL (0.1-0.5); BILIRUBIN,TOTAL 0.6 mg/dL (0.2-1.0); BUN - BLOOD UREA NITROGEN 15 mg/dL (6-20); CALCIUM 9.3 mg/dL (8.5-10.3); CARBON DIOXIDE - CO2 23 mmol/L (21-32); CHLORIDE 104 mmol/L (101-111); CHOL/HDL RATIO 2.5 (<4.4); CHOLESTEROL 144 mg/dL; CREATININE 0.8 mg/dL (0.4-1.0); GFR - MDRD 77 (>89); GLUCOSE 97 mg/dL (70-100); HDL CHOLESTEROL 57 mg/dL; LDL CHOLESTEROL,CALCULATED 56 mg/dL; POTASSIUM 3.6 mmol/L (3.5-5.0); SODIUM 138 mmol/L (135-145); TOTAL PROTEIN 7.7 g/dL (6.7-8.2); TRIGLYCERIDES 154 mg/dL; VLDL CHOLESTEROL 31 mg/dL
[2020-12-28 13:18] LABS: HEPATITIS B SURFACE ANTIGEN NON-REACTIVE (NON-REACTIVE); HEPATITIS C ANTIBODY NON-REACTIVE (NON-REACTIVE)
[2020-12-29 15:16] LABS: NIL 0.02 IU/mL
== END 2020-12-27 15:38 | disposition home or self-care (01) ==
LOC: LAB 15:37
PROVIDERS: ATTEND Physician Assistant
DX: L40.0 Psoriasis vulgaris (principal)
CPT/HCPCS: 36415; 80048; 80061; 80076; 83721; 85025; 86317; 86480; 86704; 86803; 87340

== ENCOUNTER 2021-04-11 12:21 | Outpatient (CLI) | payer BC ==
[2021-04-11 14:53] LABS: BASOPHILS % (AUTO) 0.4 %; EOSINOPHILS # (AUTO) 0.1 10^3/uL (0.0-0.7); EOSINOPHILS % (AUTO) 1.5 %; HCT - HEMATOCRIT 44.5 % (37.0-47.0); HGB - HEMOGLOBIN 14.4 g/dL (12.0-16.0); LYMPHOCYTES # (AUTO) 2.3 10^3/uL (1.5-3.5); LYMPHOCYTES % (AUTO) 27.4 %; MEAN CORPUSCULAR HEMOGLOBIN 32.9 pg (27.0-31.0); MEAN CORPUSCULAR HGB CONC 32.4 g/dL (32.0-36.0); MEAN CORPUSCULAR VOLUME 101.6 fL (81.0-99.0); MEAN PLATELET VOLUME 11.2 fL (7.9-10.8); MONOCYTES # (AUTO) 0.6 10^3/uL (0.0-1.0); MONOCYTES % (AUTO) 7.7 %; NEUTROPHILS # (AUTO) 5.2 10^3/uL (1.5-6.6); NEUTROPHILS % (AUTO) 62.6 %; PLT - PLATELET COUNT 256 10^3/uL (130-450); RED BLOOD COUNT 4.38 10^6/uL (4.20-5.40); RED CELL DISTRIBUTION WIDTH 12.7 % (12.0-15.0); WHITE BLOOD COUNT 8.2 x10^3/uL (4.8-10.8)
[2021-04-11 15:19] LABS: ALBUMIN 4.3 g/dL (3.2-5.5); ALKALINE PHOSPHATASE 140 IU/L (42-121); ALT ALANINE AMINOTRANSFERASE 63 IU/L (10-60); AST ASPARTATE AMINOTRANSFERASE 43 IU/L (10-42); BILIRUBIN,DIRECT 0.1 mg/dL (0.1-0.5); BILIRUBIN,TOTAL 0.4 mg/dL (0.2-1.0); CHOL/HDL RATIO 2.3 (<4.4); CHOLESTEROL 150 mg/dL; HDL CHOLESTEROL 66 mg/dL; LDL CHOLESTEROL,CALCULATED 64 mg/dL; TOTAL PROTEIN 7.7 g/dL (6.7-8.2); TRIGLYCERIDES 99 mg/dL; VLDL CHOLESTEROL 20 mg/dL
== END 2021-04-11 12:22 | disposition home or self-care (01) ==
LOC: LAB.S 12:21
PROVIDERS: ATTEND Physician Assistant
DX: L40.0 Psoriasis vulgaris (principal)
CPT/HCPCS: 36415; 80061; 80076; 83721; 85025

== ENCOUNTER 2021-05-02 10:55 | Outpatient (CLI) | payer BC ==
[2021-05-02 14:18] LABS: BASOPHILS % (AUTO) 0.3 %; EOSINOPHILS # (AUTO) 0.1 10^3/uL (0.0-0.7); EOSINOPHILS % (AUTO) 1.3 %; HCT - HEMATOCRIT 44.7 % (37.0-47.0); HGB - HEMOGLOBIN 14.9 g/dL (12.0-16.0); LYMPHOCYTES % (AUTO) 19.8 %; MEAN CORPUSCULAR HEMOGLOBIN 33.7 pg (27.0-31.0); MEAN CORPUSCULAR HGB CONC 33.3 g/dL (32.0-36.0); MEAN CORPUSCULAR VOLUME 101.1 fL (81.0-99.0); MEAN PLATELET VOLUME 11.1 fL (7.9-10.8); MONOCYTES # (AUTO) 0.9 10^3/uL (0.0-1.0); MONOCYTES % (AUTO) 8.6 %; NEUTROPHILS # (AUTO) 7.1 10^3/uL (1.5-6.6); NEUTROPHILS % (AUTO) 69.7 %; PLT - PLATELET COUNT 322 10^3/uL (130-450); RED BLOOD COUNT 4.42 10^6/uL (4.20-5.40); RED CELL DISTRIBUTION WIDTH 13.1 % (12.0-15.0); WHITE BLOOD COUNT 10.1 x10^3/uL (4.8-10.8)
[2021-05-02 14:55] LABS: ALBUMIN 4.5 g/dL (3.2-5.5); ALKALINE PHOSPHATASE 175 IU/L (42-121); ALT ALANINE AMINOTRANSFERASE 71 IU/L (10-60); AST ASPARTATE AMINOTRANSFERASE 38 IU/L (10-42); BILIRUBIN,DIRECT 0.1 mg/dL (0.1-0.5); BILIRUBIN,TOTAL 0.7 mg/dL (0.2-1.0); TOTAL PROTEIN 7.8 g/dL (6.7-8.2)
[2021-05-02 15:41] LABS: CHOLESTEROL 134 mg/dL; HDL CHOLESTEROL 44 mg/dL; LDL CHOLESTEROL,CALCULATED 67 mg/dL; LDL/HDL RATIO 1.5 (<4.4); TRIGLYCERIDES 113 mg/dL; VLDL CHOLESTEROL 23 mg/dL
== END 2021-05-02 10:56 | disposition home or self-care (01) ==
LOC: LAB.S 10:55
PROVIDERS: ATTEND Physician Assistant
DX: L40.0 Psoriasis vulgaris (principal)
CPT/HCPCS: 36415; 80061; 80076; 83721; 85025

== ENCOUNTER 2021-09-13 23:39 | Outpatient (CLI) | payer SELFPAY | END 2021-09-13 23:59 | disposition short-term general hospital (02) | LOC: EMS 23:39 | DX: R07.9 Chest pain, unspecified (principal) | CPT/HCPCS: A0425; A0427 ==

== ENCOUNTER 2022-03-14 10:13 | Outpatient (CLI) | payer BC | END 2022-03-14 10:14 | disposition short-term general hospital (02) | LOC: EMS 10:13 | DX: R51.9 Headache, unspecified (principal); M54.2 Cervicalgia; M25.512 Pain in left shoulder; M25.511 Pain in right shoulder; H53.8 Other visual disturbances; R53.1 Weakness; R11.2 Nausea with vomiting, unspecified | CPT/HCPCS: A0425; A0427 ==

== ENCOUNTER 2023-05-13 22:11 | Emergency (ER) | payer BC ==
[2023-05-13 22:40] LABS: BASOPHILS % (AUTO) 0.5 %; EOSINOPHILS # (AUTO) 0.3 10^3/uL (0.0-0.7); EOSINOPHILS % (AUTO) 3.8 %; HCT - HEMATOCRIT 41.2 % (37.0-47.0); HGB - HEMOGLOBIN 13.8 g/dL (12.0-16.0); LYMPHOCYTES # (AUTO) 2.8 10^3/uL (1.5-3.5); LYMPHOCYTES % (AUTO) 35.7 %; MEAN CORPUSCULAR HEMOGLOBIN 32.5 pg (27.0-31.0); MEAN CORPUSCULAR HGB CONC 33.5 g/dL (32.0-36.0); MEAN CORPUSCULAR VOLUME 96.9 fL (81.0-99.0); MEAN PLATELET VOLUME 10.5 fL (7.9-10.8); MONOCYTES # (AUTO) 0.8 10^3/uL (0.0-1.0); MONOCYTES % (AUTO) 10.5 %; NEUTROPHILS # (AUTO) 3.9 10^3/uL (1.5-6.6); NEUTROPHILS % (AUTO) 49.2 %; PLT - PLATELET COUNT 309 10^3/uL (130-450); RED BLOOD COUNT 4.25 10^6/uL (4.20-5.40); RED CELL DISTRIBUTION WIDTH 11.8 % (12.0-15.0); WHITE BLOOD COUNT 7.9 x10^3/uL (4.8-10.8)
[2023-05-13 22:57] LABS: ALBUMIN 4.4 g/dL (3.2-5.5); ALBUMIN/GLOBULIN RATIO 1.3 (1.0-2.2); BILIRUBIN,TOTAL 0.2 mg/dL (0.2-1.0); CALCIUM 9.4 mg/dL (8.5-10.3); CREATININE 0.8 mg/dL (0.6-1.3); POTASSIUM 3.7 mmol/L (3.5-4.5); TOTAL PROTEIN 7.9 g/dL (6.4-8.9)
[2023-05-13 23:00] LABS: TROPONIN I HIGH SENSITIVITY 4.3 ng/L (2.3-14.8)
--- NOTE | 2023-05-13 23:41 | ED Physician Documentation ---
PD HPI CHEST PAIN - Stated complaint Stated Complaint: CHEST PX - Chief complaint Chief Complaint: Cardiac - History obtained from History obtained from: Patient - Additional information Additional information: HPI from patient. Patient c/o pain across her upper back since yesterday. No inciting event. No ameliorating factors. Mildly exacerbated with deep inspiration but otherwise denies feeling short of air. Denies fever, cough. No change in symptoms after three SLNTG; she took NTG because she says she had similar symptoms that led to diagnosis of PR approximately 3 years ago. Past medical history also notable for cerebral aneurysm diagnosed 2 years ago. Denies injury, denies recent strenuous activity, denies leg swelling Review of Systems Constitutional: reports: Reviewed and negative Cardiac: reports: Reviewed and negative Respiratory: denies: Dyspnea (mild pleuritic component but not short of breath per se), Cough, Hemoptysis, Wheezing GI: reports: Reviewed and negative Musculoskeletal: denies: Extremity swelling PD PAST MEDICAL HISTORY - Past Medical History Past Medical History: Yes Cardiovascular: PR Respiratory: None Neuro: None Endocrine/Autoimmune: None GI: None SECOND OFFICER: None : None HEENT: None Psych: Depression, Other Musculoskeletal: None Derm: None - Past Surgical History Past Surgical History: Yes /SECOND OFFICER: Hysterectomy HEENT: Tonsil/Adenoidectomy - Present Medications Home Medications: Ambulatory Orders Medication Instructions Recorded Confirmed Atorvastatin [Lipitor] 1 tab DAILY 08/05/19 08/05/19 Lorazepam [Ativan] 1 tab Q8HR PRN 08/05/19 08/05/19 Naltrexone HCl 50 mg PO 08/05/19 - Allergies Allergies/Adverse Reactions: Allergies Allergy/AdvReac Type Severity Reaction Status Date / Time Opioids - Morphine Analogues AdvReac Intermediate Emesis Verified 05/13/23 22:16 - Social History Does the pt smoke?: Yes Smoking Status: Current every day smoker Does the pt drink ETOH?: Yes Does the pt have substance abuse?: No - Immunizations Immunizations are current?: Yes - POLST Patient has POLST: No PD ED PE NORMAL - Vitals Vital signs reviewed: Yes - General General: Alert and oriented X 3, No acute distress, Well developed/nourished - Cardiac Cardiac: RRR, No murmur - Respiratory Respiratory: No respiratory distress, Clear bilaterally - Abdomen Abdomen: Soft, Non tender - Derm Derm: Normal color, Warm and dry - Extremities Extremities: No edema Results - Vitals Vitals: Vital Signs - 24 hr 05/13/23 05/13/23 05/13/23 22:16 22:28 22:59 Temperature 36.5 C Heart Rate 110 H 93 Respiratory 16 16 Rate Blood Pressure 139/80 H 120/84 H Blood Pressure 123/80 [Left] O2 Saturation 98 96 05/13/23 05/14/23 05/14/23 23:44 00:00 01:00 Temperature Heart Rate 91 91 88 Respiratory 14 22 16 Rate Blood Pressure 124/76 122/83 H 103/60 Blood Pressure [Left] O2 Saturation 100 95 95 Oxygen O2 Source Room air - EKG (time done) No standard instances EKG releavant findings:: EKG personally interpreted by author of this note. Relevant findings are: Rate: Rate (enter#) (102) Rhythm: Sinus tachycardia [place]: Normal Intervals: Normal [place] QRS: Normal Ischemia: Normal ST segments - Labs Labs: Laboratory Tests 05/13/23 05/13/23 05/14/23 22:36 22:36 00:14 WBC 7.9 RBC 4.25 Hgb 13.8 Hct 41.2 MCV 96.9 MCH 32.5 H MCHC 33.5 RDW 11.8 L Plt Count 309 MPV 10.5 Neut # (Auto) 3.9 Lymph # (Auto) 2.8 [place] # (Auto) 0.8 Eos # (Auto) 0.3 Baso # (Auto) 0.0 Absolute Nucleated RBC 0.00 Nucleated RBC % 0.0 Sodium 139 Potassium 3.7 Chloride 107 Carbon Dioxide 22 Anion Gap 10.0 BUN 8 Creatinine 0.8 Estimated GFR (MDRD) 76 L Glucose 139 H Calcium 9.4 Total Bilirubin 0.2 AST 56 H ALT 71 H Alkaline Phosphatase 177 H Troponin I High Sens 4.3 4.3 Total Protein 7.9 Albumin 4.4 Globulin 3.5 Albumin/Globulin Ratio 1.3 Lipase 44 - Rads (name of study) chest xray Relevant Findings:: Prelim report reviewed, See rad report PD Medical Decision Making - ED course Complexity details: reviewed results, re-evaluated patient, considered differential, d/w patient ED course: No concerning nor diagnostic results on blood tests, EKG, CXR. Normal blood tests include normal hs-cTn with 2-hour repeat (unchanged from first draw). Patient is comfortable with d/c home. Return precautions carefully reviewed and emphasizing low threshold for return, given similarity in bryanna's symptoms to previous PR. Departure - Departure Disposition: 01 Home, Self Care Clinical Impression: Back pain Condition: Good Instructions: ED Acute Pain [facility] Follow-Up: Zeinab Hunter MD [Primary Care Provider] - Within 3 Days Comments: There were no concerning nor diagnostic findings on tonashley's test, including the chest x-ray, blood test, and the EKG. A cardiac enzyme blood test was normal, as was a 2-hour repeat of the cardiac blood test. This is all very reassuring, but, at the same time, the cause of your symptoms remains unclear. I recommend that you contact your primary care provider in the morning when their office next opens to arrange for immediate follow-up appointment for reevaluation. Even if your symptoms resolve, you might need further testing at your primary care provider's discretion, such as an updated stress test. Forms: PCP List Discharge Date/Time: 05/14/23 01:00
--- NOTE | 2023-05-13 23:54 | XRAY Report ---
PROCEDURE: Chest 1 View X-Ray INDICATIONS: Chest pain TECHNIQUE: One view of the chest was acquired. COMPARISON: None. FINDINGS: Surgical changes and devices: None. Lungs and pleura: No pleural effusions or pneumothorax. Lungs are clear. Mediastinum: Mediastinal contours appear normal. Heart size is normal. Bones and chest wall: No suspicious bony lesions. Overlying soft tissues appear unremarkable. IMPRESSION: No acute cardiopulmonary process. Reviewed by: Rich Nelson MD on 05/13/2023 11:52 PM [facility] Approved by: Rich Nelson MD on 05/13/2023 11:52 PM [facility] Station ID: [id number]
[2023-05-14 00:11] VITALS: O2SAT 95
[2023-05-14 07:18] VITALS: BP 103/60
== END 2023-05-14 01:00 | disposition home or self-care (01) ==
LOC: ED 22:11
DX: M54.6 Pain in thoracic spine (principal); I25.2 Old myocardial infarction; F17.200 Nicotine dependence, unspecified, uncomplicated
CPT/HCPCS: 36415; 80053; 83690; 84484; 85025; 93005; 99284

== ENCOUNTER 2023-05-31 10:39 | Outpatient (CLI) | payer BC ==
[2023-05-31] MEDS: iohexoL-300 100 ML VIAL IVP ONE (12:54)
--- NOTE | 2023-05-31 13:17 | CT Report ---
PROCEDURE: CT Angio Head/Neck INDICATIONS: VASCULAR COILING TECHNIQUE: Pre-contrast 4.5 mm thick sections acquired from the foramen magnum to the vertex. After the adminis tration of intravenous contrast, 1 mm thick sections acquired from the aortic arch through the [place] of [place]. Post-contrast 4.5 mm thick sections then re-acquired from the foramen magnum to the vert ex. 3-dimensional jayntld-fpgprubie-aabjqzsohc (MIP) and/or volume rendering reformats were acquired of the central intracranial vasculature and neck separately. For radiation dose reduction, the foll owing was used: automated exposure control, adjustment of mA and/or kV according to patient size. COMPARISON: None FINDINGS: Image quality: Excellent. BRAIN: CSF spaces: Ventricles are normal in size and shape. Basal cisterns are patent. No extra-axial flu id collections. Brain: No midline shift. No intracranial bleeds or masses. Gagnon-white matter interface appears int act. Skull and face: Calvarium and facial bones appear intact, without suspicious lesions. Orbits appear normal. Sinuses: Sinuses and mastoids are clear. HEAD CT ANGIOGRAPHY: Anterior circulation: Intracranial internal carotid arteries are normal in size and flow. The flow within the paired anterior cerebral arteries is normal and symmetric. The flow within the middle cer ebral arteries is normal and symmetric. The anterior communicating artery is seen. No aneurysms are seen. Posterior circulation: Visualized portions of the vertebral arteries demonstrate normal caliber, and join to form a normal appearing basilar artery. Flow within the posterior cerebral arteries is norm al and symmetric. No aneurysms are seen. NECK CT ANGIOGRAPHY: Carotid system: The great vessels demonstrate a conventional anatomy as they arise from the aortic a rch. The origins of the common carotid arteries appear patent. The common carotid arteries demonstr ate normal caliber and courses. The bifurcation regions are both widely patent. The internal caroti d arteries demonstrate normal calibers and courses. Posterior circulation: The origins of the vertebral arteries both appear widely patent. The more whitney perior extracranial portions of both vertebral arteries also demonstrate normal courses and calibers. They join to form a normal appearing basilar artery. Soft tissues: Visualized neck soft tissues demonstrate no suspicious abnormalities. Bones: No suspicious bony lesions. Visualized cervical spine appears normally aligned. IMPRESSION: 1. Status post aneurysmal clipping of the DIALLO. 2. Otherwise normal CTA head/neck. The estimate of stenosis included in the report of the imaging study was calculated using the NASCET method Reviewed by: Can Taylor on 05/31/2023 1:16 PM PST Approved by: Can Taylor on 05/31/2023 1:16 PM PST Station ID: [id number]
== END 2023-05-31 10:40 | disposition home or self-care (01) ==
LOC: DI 10:39
PROVIDERS: ATTEND Internal Medicine
DX: I60.7 Nontraumatic subarachnoid hemorrhage from unspecified intracranial artery (principal)

== ENCOUNTER 2023-10-23 20:52 | Emergency (ER) | payer BC ==
[2023-10-23] MEDS ORDERED: iohexoL-300 100 ML VIAL ONE (21:12)
--- NOTE | 2023-10-23 21:12 | ED Physician Documentation ---
PD HPI HEADACHE - Stated complaint Stated Complaint: ODEN - Chief complaint Chief Complaint: Neuro - History obtained from History obtained from: Patient - Additional information Additional information: 48-year-old woman with history of both coronary disease with NSTEMI with [address] and on baby aspirin and cerebral aneurysm coiled after rupture in March 2022. She is been having migratory mild chest pains yesterday and today. They are not consistent with prior anginal equivalent. Today she has a headache. She is not a headachy person and has not had headaches per se since her aneurysm. The headache is not severe but it is making her worried and she notes that she had nightmares last night about her aneurysm being back. She is quite anxious about all of this. She describes the quality of the headache as a numbness of the entire head. PD PAST MEDICAL HISTORY - Past Medical History Cardiovascular: [place] Respiratory: None Neuro: None Endocrine/Autoimmune: None GI: None BREAKFAST SERVER: None : None HEENT: None Psych: Depression, Other Musculoskeletal: None Derm: None - Past Surgical History Past Surgical History: Yes /BREAKFAST SERVER: Hysterectomy HEENT: Tonsil/Adenoidectomy - Present Medications Home Medications: Ambulatory Orders Medication Instructions Recorded Confirmed Atorvastatin [Lipitor] 1 tab DAILY 08/05/19 08/05/19 Lorazepam [Ativan] 1 tab Q8HR PRN 08/05/19 08/05/19 Naltrexone HCl 50 mg PO 08/05/19 - Allergies Allergies/Adverse Reactions: Allergies Allergy/AdvReac Type Severity Reaction Status Date / Time Opioids - Morphine Analogues AdvReac Intermediate Emesis Verified 10/23/23 21:01 - Social History Does the pt smoke?: Yes Smoking Status: Current every day smoker Does the pt drink ETOH?: Yes Does the pt have substance abuse?: No - Immunizations Immunizations are current?: Yes - POLST Patient has POLST: No PD ED PE NORMAL - Vitals Vital signs reviewed: Yes - General General: Alert and oriented X 3, Other (Anxious but otherwise in no apparent distress.) - HEENT HEENT: PERRL, EOMI - Neck Neck: Supple, no meningeal sign, No bony TTP - Cardiac Cardiac: RRR, No murmur - Respiratory Respiratory: No respiratory distress, Clear bilaterally - Abdomen Abdomen: Non tender - Neuro Neuro: Alert and oriented X 3, tobacco grower 2-12 intact, No motor deficit, No sensory deficit, Normal speech, Other (Normal gait) Eye Opening: Spontaneous Motor: Obeys Commands Verbal: Oriented GCS Score: 15 Results - Vitals Vitals: Vital Signs - 24 hr 10/23/23 10/23/23 10/23/23 20:54 21:08 22:55 Temperature 35.9 C L Heart Rate 95 88 82 Respiratory 17 16 Rate Blood Pressure 128/72 125/70 O2 Saturation 99 98 Oxygen O2 Source Room air - EKG (time done) 2116 EKG releavant findings:: EKG personally interpreted by author of this note. Relevant findings are: Rate: Rate (enter#) (83) Rhythm: NSR [place]: Normal Intervals: Normal [place] QRS: Normal Ischemia: Normal ST segments - Labs Labs: Laboratory Tests 10/23/23 10/23/23 10/23/23 21:30 21:30 21:30 WBC 7.8 RBC 4.20 Hgb 13.4 Hct 39.8 MCV 94.8 MCH 31.9 H MCHC 33.7 RDW 12.0 Plt Count 291 MPV 10.2 Neut # (Auto) 3.8 Lymph # (Auto) 2.9 [place] # (Auto) 0.7 Eos # (Auto) 0.3 Baso # (Auto) 0.0 Absolute Nucleated RBC 0.00 Nucleated RBC % 0.0 PT 11.3 INR 1.0 Sodium 138 Potassium 3.4 L Chloride 107 Carbon Dioxide 21 Anion Gap 10.0 BUN 8 Creatinine 0.5 L Estimated GFR (MDRD) 131 Glucose 122 H Calcium 9.9 Total Bilirubin 0.3 AST 49 H ALT 68 H Alkaline Phosphatase 215 H Troponin I High Sens 3.4 Total Protein 8.3 Albumin 4.3 Globulin 4.0 Albumin/Globulin Ratio 1.1 Ethyl Alcohol 168.9 - Rads (name of study) CT/CTA Head Relevant Findings:: Final report received, EMP independent interpretation of test PD Medical Decision Making - ED course ED course: 48-year-old woman presents with both headache and chest pain in the setting of prior coronary disease with stenting and brain aneurysm with coiling. The headache would be atypical for ruptured aneurysm. She describes it is not severe and more like a numbness of her head. She also states that her prior anginal equivalent when she had her NSTEMI is much worse and different quality to the current mild pain. Workup in the emergency department demonstrated nonischemic EKG, lab work which was notable for normal CBC, normal PT/INR, positive blood alcohol at 168 with some evidence of transaminitis. She also had CT and CT angiography of the head which was normal/negative. After the administration of a small dose of droperidol her headache was much better and she said her chest pain was always mild. She was counseled to quit drinking and follow-up with her primary care physician. Departure - Departure Clinical Impression: Alcohol intoxication Qualifiers: Complication of substance-induced condition: uncomplicated Qualified Code(s): F10.920 - Alcohol use, unspecified with intoxication, uncomplicated Headache Qualifiers: Headache type: unspecified Headache chronicity pattern: acute headache Intractability: not intractable Qualified Code(s): R51.9 - Headache, unspecified Chest pain Qualifiers: Chest pain type: unspecified Qualified Code(s): R07.9 - Chest pain, unspecified Instructions: ED Chest Pain Atypical Unkn Cause, ED Alcohol Intoxication Comments: You were seen today for headache. This is always concerning when you have had an aneurysm in the past. Thankfully the angiogram of your head did not show any recurrence of the aneurysm. You also had some chest pain but your cardiac enzymes were negative. The only thing of significance that was abnormal was your blood alcohol level and your liver function. 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 It is imperative to stop drinking to protect your health and to prevent further damage. Call your doctor to arrange a follow-up appointment, make the next available appointment. In the interim, return anytime if worse or if new symptoms develop. Forms: PCP List
[2023-10-23] MEDS: DROPERIDOL 5 MG/2 ML VIAL IVP STA (21:35)
[2023-10-23 21:37] LABS: BASOPHILS % (AUTO) 0.5 %; EOSINOPHILS # (AUTO) 0.3 10^3/uL (0.0-0.7); EOSINOPHILS % (AUTO) 4.4 %; HCT - HEMATOCRIT 39.8 % (37.0-47.0); HGB - HEMOGLOBIN 13.4 g/dL (12.0-16.0); LYMPHOCYTES # (AUTO) 2.9 10^3/uL (1.5-3.5); LYMPHOCYTES % (AUTO) 37.2 %; MEAN CORPUSCULAR HEMOGLOBIN 31.9 pg (27.0-31.0); MEAN CORPUSCULAR HGB CONC 33.7 g/dL (32.0-36.0); MEAN CORPUSCULAR VOLUME 94.8 fL (81.0-99.0); MEAN PLATELET VOLUME 10.2 fL (7.9-10.8); MONOCYTES # (AUTO) 0.7 10^3/uL (0.0-1.0); MONOCYTES % (AUTO) 8.9 %; NEUTROPHILS # (AUTO) 3.8 10^3/uL (1.5-6.6); NEUTROPHILS % (AUTO) 48.9 %; PLT - PLATELET COUNT 291 10^3/uL (130-450); WHITE BLOOD COUNT 7.8 x10^3/uL (4.8-10.8)
[2023-10-23 21:44] LABS: PT - PROTHROMBIN TIME 11.3 secs (9.9-12.6)
[2023-10-23 21:59] LABS: TROPONIN I HIGH SENSITIVITY 3.4 ng/L (2.3-14.8)
[2023-10-23 22:08] LABS: ALBUMIN 4.3 g/dL (3.2-5.5); ALBUMIN/GLOBULIN RATIO 1.1 (1.0-2.2); BILIRUBIN,TOTAL 0.3 mg/dL (0.2-1.0); CALCIUM 9.9 mg/dL (8.5-10.3); CREATININE 0.5 mg/dL (0.6-1.3); ETOH - ETHANOL 168.9 mg/dL; POTASSIUM 3.4 mmol/L (3.5-4.5); TOTAL PROTEIN 8.3 g/dL (6.4-8.9)
[2023-10-23] MEDS: iohexoL-300 100 ML VIAL IVP ONE (22:37)
--- NOTE | 2023-10-23 22:48 | CT Report ---
PROCEDURE: Head WO INDICATIONS: headache, hx milagros aneurysm TECHNIQUE: Noncontrast 4.5 mm thick angled axial sections acquired from the foramen magnum to the vertex. For r adiation dose reduction, the following was used: automated exposure control, adjustment of mA and/or kV according to patient size. COMPARISON: 05/31/2023. FINDINGS: Image quality: Excellent. CSF spaces: Basal cisterns are patent. No extra-axial fluid collections. Ventricles are normal in size and shape. Brain: No midline shift. No intracranial masses or hemorrhage. Gagnon-white matter interface is norm al. Aneurysm clip in the region of the left MILAGROS. Skull and face: Calvarium and visualized facial bones are intact, without suspicious lesions. Sinuses: Visualized sinuses and mastoids are clear. IMPRESSION: No acute intracranial pathology. Reviewed by: Justice De La O MD on 10/23/2023 10:46 PM PDT Approved by: Justice De La O MD on 10/23/2023 10:46 PM PDT Station ID: [id number]
--- NOTE | 2023-10-23 22:51 | CT Report ---
PROCEDURE: CT Angio Head INDICATIONS: headache, hx milagros aneurysm CONTRAST: [id number] 80ml TECHNIQUE: After the administration of intravenous contrast, 1 mm thick sections acquired through the [place] of [place]. Postcontrast 4.5 mm thick sections then re-acquired from the foramen magnum to the vertex. 3-dimensional nirtqvw-zwrssisea-pqeptvnflp (MIP) and/or volume rendering reformats were acquired of [facility] central intracranial vasculature. For radiation dose reduction, the following was used: automate d exposure control, adjustment of mA and/or kV according to patient size. COMPARISON: 01/28/2023. FINDINGS: Image quality: Diagnostic. Anterior circulation: Intracranial internal carotid arteries are normal in size and flow. The flow within the paired anterior cerebral arteries is normal and symmetric. The flow within the middle cer ebral arteries is normal and symmetric. Aneurysm coils adjacent to the a comm. Streak artifact limits evaluation of the adjacent structures. The anterior communicating artery is seen. No aneurysms are seen. Posterior circulation: Visualized portions of the vertebral arteries demonstrate normal caliber, and join to form a normal appearing basilar artery. Flow within the posterior cerebral arteries is norm al and symmetric. No aneurysms are seen. CSF spaces: Ventricles are normal in size and shape. Basal cisterns are patent. No extra-axial flu id collections. Brain: No midline shift. No intracranial bleeds or masses. Gagnon-white matter interface appears int act. Skull and face: Calvarium and facial bones appear intact, without suspicious lesions. Sinuses: Visualized sinuses and mastoids are clear. IMPRESSION: 1.No significant intracranial arterial abnormality is seen. 2.Aneurysm coil seen adjacent to the anterior communicating artery. Streak artifact limits evaluation of adjacent structures. Reviewed by: Justice Qureshi MD on 10/23/2023 10:50 PM PDT Approved by: Justice Qureshi MD on 10/23/2023 10:50 PM PDT Station ID: [id number]
[2023-10-23 22:57] VITALS: BP 125/70; O2SAT 98
== END 2023-10-23 23:01 | disposition home or self-care (01) ==
LOC: ED 20:52
DX: R07.9 Chest pain, unspecified (principal); R51.9 Headache, unspecified; F10.920 Alcohol use, unspecified with intoxication, uncomplicated; F17.200 Nicotine dependence, unspecified, uncomplicated; I25.2 Old myocardial infarction; Z79.82 Long term (current) use of aspirin; Z86.79 Personal history of other diseases of the circulatory system
CPT/HCPCS: 36415; 70450; 70496; 80053; 82077; 84484; 85025; 85610; 93005; 96374; 99284; Q9967

== ENCOUNTER 2023-12-22 22:01 | Outpatient (CLI) | payer BC | END 2023-12-22 23:59 | disposition EMS.NT | LOC: EMS 22:01 | DX: M54.89 Other dorsalgia (principal); F10.90 Alcohol use, unspecified, uncomplicated ==

== ENCOUNTER 2024-01-16 07:00 | Outpatient (CLI) | payer BC ==
[2024-01-16 14:41] LABS: BILIRUBIN,URINE NEGATIVE (NEGATIVE); GLUCOSE, URINE (UA) NEGATIVE (NEGATIVE); KETONES,URINE (UA) NEGATIVE (NEGATIVE); LEUKOCYTE ESTERASE, URINE NEGATIVE (NEGATIVE); NITRITE,URINE NEGATIVE (NEGATIVE); OCCULT BLOOD,URINE SMALL (NEGATIVE); PH,URINE 6.5 PH (5.0-7.5); PROTEIN,URINE 30 mg/dL (NEGATIVE); UROBILINOGEN,URINE 0.2 (NORMAL) E.U./dL (NORMAL)
[2024-01-16 14:44] LABS: CLARITY,URINE CLEAR (CLEAR)
[2024-01-16 14:52] LABS: BACTERIA,URINE Rare /HPF (None Seen); SQUAMOUS EPITHELIAL CELL,UR FEW Squamous (<= Few); WBC,URINE 0-3 /HPF (0-5)
== END 2024-01-16 23:59 | disposition home or self-care (01) ==
LOC: LAB.S 07:00
PROVIDERS: ATTEND Registered Nurse
DX: R31.9 Hematuria, unspecified (principal); R82.79 Other abnormal findings on microbiological examination of urine; R10.9 Unspecified abdominal pain
CPT/HCPCS: 81001; 87086

== ENCOUNTER 2024-01-30 15:58 | Outpatient (CLI) | payer BC ==
--- NOTE | 2024-01-30 21:55 | Ultrasound Report ---
PROCEDURE: Renal (Retroperitoneal) INDICATIONS: HEMATURIA TECHNIQUE: Real-time scanning was performed of the retroperitoneal organs, with image documentation. COMPARISON: None. FINDINGS: Kidneys: Kidneys are normal in size. Right kidney measures 10.2 cm long; left kidney measures 10.5 cm long. Right renal cortical thickness is 1.3 cm; left renal cortical thickness is 1.2 cm. No chika d masses, gross hydronephrosis, or nephrolithiasis. Slight nonspecific prominence of the left renal m edulla inferiorly. Bladder: Pre-void bladder volume is 629 mL. Post-void residual is 13 mL. Pre-void images demonstra te no intraluminal masses or stones. On pre-void images, bilateral ureteral jets are noted with colo r Doppler interrogation. (Of note, ureteral jets may not be detectable in up to 25% of cases due to insufficient differences in specific gravity between ureteral and bladder urine). Miscellaneous: No free abdominal fluid. IMPRESSION: No visualized stones. Nonspecific appearance of fullness within the inferior left renal medulla. This could be artifact or shadowing. However, given history of hematuria, further evaluation with CT is recommended. Reviewed by: Yulia Sahu MD on 01/30/2024 9:53 PM PDT Approved by: Yulia Sahu MD on 01/30/2024 9:53 PM PDT Station ID: [id number]
== END 2024-01-30 15:59 | disposition home or self-care (01) ==
LOC: DI 15:58
PROVIDERS: ATTEND Registered Nurse
DX: R31.9 Hematuria, unspecified (principal); R82.79 Other abnormal findings on microbiological examination of urine; R10.9 Unspecified abdominal pain

== ENCOUNTER 2024-02-05 12:19 | Outpatient (CLI) | payer BC ==
[2024-02-05] MEDS ORDERED: iohexoL-300 150 ML BOTTLE ONE (12:37)
[2024-02-05 13:06] LABS: CREATININE 0.7 mg/dL (0.6-1.3)
[2024-02-05] MEDS: iohexoL-300 100 ML VIAL IVP ONE (13:38)
--- NOTE | 2024-02-05 17:12 | CT Report ---
PROCEDURE: IVP INDICATIONS: ABN ABD IMAGING CONTRAST: 140ml [id number] TECHNIQUE: A [address] of the abdomen and pelvis was performed. Non-contrast and contrast images were recorded and evaluated at appropriate window settings. Images were recorded and evaluated at appropriate windo w settings. Reformats: coronal and sagittal. For radiation dose reduction, the following was used: au tomated exposure control, adjustment of mA and/or kV according to patient size. COMPARISON: Prior ultrasound, 01/30/2024 FINDINGS: Image quality: Diagnostic. Lower chest: Unremarkable. Liver: No solid mass. Gallbladder: Within normal limits. Biliary tree: No intrahepatic or extrahepatic dilation, accounting for age. Spleen: No splenomegaly. Pancreas: No pancreatic ductal dilation. Adrenals: No adrenal nodule. Kidneys and ureters: Both kidneys are normal in size. No hydronephrosis or nephrolithiasis on pre-con trast images. No solid masses or complex cysts which require follow up. The opacified renal calyces and ureters appear normal, without filling defect. Stomach, bowel and peritoneum: No bowel distension. No pathologic free fluid. A normal appendix is seen. Abdominal Lymph nodes: No central or retroperitoneal adenopathy. Vessels: Unremarkable. Patent portal vein. Atherosclerotic calcification is seen. Reproductive organs: This patient is status post hysterectomy. No adnexal masses can be seen. Bladder: No abnormal wall thickening, accounting for underdistention. No calcified bladder stones. No filling defect within the opacified bladder. Pelvic Lymph nodes: Unremarkable. Bones: No aggressive osseous abnormality. Focal L5-S1 degenerative change is seen. Other: None. IMPRESSION: No renal masses are detected. The prior recent ultrasound appearance is attributed to ar tifact. No nephrolithiasis or filling defects within the opacified renal collecting systems or ureters. Bladd er is incompletely distended with contrast. Additional findings: Hysterectomy Focal L5-S1 degenerative change Reviewed by: Tato Augustin MD on 02/05/2024 4:11 PM [facility] Approved by: Tato Augustin MD on 02/05/2024 4:11 PM [facility] Station ID: [id number]
== END 2024-02-05 12:20 | disposition home or self-care (01) ==
LOC: LAB 12:19
PROVIDERS: ATTEND Registered Nurse
DX: R93.5 Abnormal findings on diagnostic imaging of other abdominal regions, including retroperitoneum (principal); R31.9 Hematuria, unspecified; R82.79 Other abnormal findings on microbiological examination of urine; R10.9 Unspecified abdominal pain; L40.0 Psoriasis vulgaris; Z79.899 Other long term (current) drug therapy
CPT/HCPCS: 36415; 81599; 82565